=== PATIENT | female | born 1965 | race American Indian/Alaskan Native ===

== ENCOUNTER → 2019-09-03 | Outpatient (CLI) | payer BC ==
[~2019-09-03] MED LIST: COREG6.25 MG PO; ESIDRIX25 MG PO; FLEXERIL 1010 MG/TAB PO; FLONASE NASAL S16 GM NS; GABAPENTIN100 MG PO; LISINOPRIL40 MG PO; METFORMIN500 MG PO; NEXIUM 40MG40 MG PEG
== END ==
LOC: ZCOL.LAB 15:57
DX: R10.32 Left lower quadrant pain (principal)

== ENCOUNTER → 2019-09-29 | Outpatient (CLI) | payer BC | LOC: COL.RAD 09-24 09:45 | DX: K80.80 Other cholelithiasis without obstruction (principal); K80.20 Calculus of gallbladder without cholecystitis without obstruction ==

== ENCOUNTER 2019-10-16 08:26 | Day surgery (SDC) | payer BC ==
[~2019-10-16] VITALS: Ht 170.2 cm; Wt 91.5 kg
[2019-10-16 09:07] VITALS: BP 189/97; PULSE 105; TEMP 96.9
[2019-10-16] MEDS ORDERED: GLUCOPHAGE1000 MG PO (09:26)
[2019-10-16] MEDS ORDERED: JARDIANCE25 PO (09:27)
[2019-10-16] MEDS ORDERED: LINZESS290CAP PO (09:27)
[2019-10-16] MEDS ORDERED: ZYRTEC 10MG10 MG PO (09:28)
[2019-10-16] MEDS ORDERED: NEXIUM 20MG20 MG PO (09:28)
[2019-10-16] MEDS ORDERED: BENTYL 20MG20 MG/TAB PO (09:29)
[2019-10-16] MEDS ORDERED: REGLAN 10MG10 MG/TAB PO ×2 (09:29→09:30)
[2019-10-16] MEDS ORDERED: NEURONTIN300 MG/CAP PO (09:30)
[2019-10-16] MEDS ORDERED: PRINIVIL20 MG PO (09:31)
[2019-10-16] MEDS ORDERED: ATARAX 25MG25 MG/TAB PO (09:32)
[2019-10-16] MEDS ORDERED: FLEXERIL 1010 MG/TAB PO (09:33)
[2019-10-16 10:30] VITALS: BP 141/80; PULSE 99; TEMP 98.1
--- NOTE | 2019-10-16 10:30 | NUR ---
Pt to GI bay 4 via cart from ENDO. Pt awake and alert. Pt denies pain or nausea. Pt ambulates to recliner with stand by assistance x2. Warm blanket provided. Juice, muffin, applesauce, and water provided per pt request. Will continue to monitor. Call light within reach.
[2019-10-16 10:45] VITALS: BP 143/80; PULSE 98
--- NOTE | 2019-10-16 10:45 | NUR ---
Pt denies pain or nausea. Tolerating food and fluids without difficulties. Denies needs. Call light within reach.
[2019-10-16 11:00] VITALS: BP 159/76; PULSE 98
--- NOTE | 2019-10-16 11:00 | NUR ---
Discharge intstructions reviewed. Pt voices understanding. Iv site discontinued with all parts intact. Pt up to dress. Call light within reach.
--- NOTE | 2019-10-16 11:22 | NUR ---
Pt escorted to private car via wheel chair. Pt accompanied home by her .
== END 2019-10-16 11:23 | disposition home or self-care (01) ==
LOC: SDCO 08:26
DX: K21.9 Gastro-esophageal reflux disease without esophagitis (principal); K57.30 Diverticulosis of large intestine without perforation or abscess without bleeding; K59.00 Constipation, unspecified; R14.0 Abdominal distension (gaseous); Z79.899 Other long term (current) drug therapy; E11.9 Type 2 diabetes mellitus without complications; Z79.84 Long term (current) use of oral hypoglycemic drugs; Z88.0 Allergy status to penicillin; Z88.8 Allergy status to other drugs, medicaments and biological substances; I10 Essential (primary) hypertension
CPT/HCPCS: J2250; J3010; J7030

== ENCOUNTER → 2019-10-23 | Outpatient (CLI) | payer BC ==
[~2019-10-23] MED LIST changes: +ATARAX 25MG25 MG/TAB PO; +BENTYL 20MG20 MG/TAB PO; +GLUCOPHAGE1000 MG PO; +JARDIANCE25 PO; +LINZESS290CAP PO; +NEURONTIN300 MG/CAP PO; +NEXIUM 20MG20 MG PO; +PRINIVIL20 MG PO; +REGLAN 10MG10 MG/TAB PO; +ZYRTEC 10MG10 MG PO
== END ==
LOC: COL.RAD 09:56
DX: K80.10 Calculus of gallbladder with chronic cholecystitis without obstruction (principal); K82.8 Other specified diseases of gallbladder
CPT/HCPCS: A9537; J2805

== ENCOUNTER → 2019-11-10 | Outpatient (CLI) | payer BC | LOC: COL.RAD 11-05 14:00 | DX: M47.816 Spondylosis without myelopathy or radiculopathy, lumbar region (principal) ==

== ENCOUNTER 2019-11-18 10:29 | Day surgery (SDC) | payer BC ==
[2019-11-18] VITALS (7 sets, daily range): BP systolic 109–137; BP diastolic 47–77; PULSE 92–107; TEMP 97–98.1
[~2019-11-18] VITALS: Ht 170.2 cm; Wt 87.7 kg
[2019-11-18] MEDS ORDERED: NORCO 325 MG-51 TAB PO (13:54)
--- NOTE | 2019-11-18 14:30 | NUR ---
PATIENT TRANSPORTED TO BAY 3 ACCOMPANIED BY PACU STAFF. MONITORS APPLIED. PATIENT ON ROOM AIR. VSS. PATIENT ALERT AND TALKING WITH STAFF. PATIENT DENIES NAUSEA AND DISCOMFORT.
--- NOTE | 2019-11-18 14:45 | NUR ---
PATIENT WATCHING TV. GIVEN MUFFIN AND WATER. PATIENT EATING AND DRINKING WITHOUT PROBLEMS. VSS ON ROOM AIR.
--- NOTE | 2019-11-18 15:00 | NUR ---
VSS ON ROOM AIR. PATIENT STATES THAT MUFFIN AND WATER WERE GOOD. PATIENT DENIES DISCOMFORT AND NAUSEA. SHE CONTINUES WATCHING TV. PATIENT REQUESTS MORE WATER AND MUFFIN.
--- NOTE | 2019-11-18 15:30 | NUR ---
VSS. DISCHARGE INSTRUCTIONS GIVEN VERBAL AND WRITTEN. DISCHARGE PACKET GIVEN TO PATIENT. QUESTIONS ANSWERED AND PATIENT VOICED UNDERSTANDING. 1540 IV DC'D WITH CATHETER TIP INTACT. PRESSURE APPLIED AND BANDAGE APPLIED. PATIENT CHANGED INTO PERSONAL CLOTHING WITH ASSIST. 1545 PATIENT DISCHARGED PER PERSONAL WHEEL CHAIR WITH ASSISTANCE OF STAFF.
--- NOTE | 2019-11-18 15:47 | NUR ---
VSS. PATIENT ASSISTED TO BATHROOM PER PERSONAL WHEEL CHAIR. PATIENT TRANSFERS SELF TO TOILET. PATIENT VOIDS WITHOUT PROBLEMS.
== END 2019-11-18 15:45 | disposition home or self-care (01) ==
LOC: SDCO 10:29
DX: K80.10 Calculus of gallbladder with chronic cholecystitis without obstruction (principal); I10 Essential (primary) hypertension; E11.42 Type 2 diabetes mellitus with diabetic polyneuropathy; K21.9 Gastro-esophageal reflux disease without esophagitis; G89.29 Other chronic pain; M54.5 Low back pain; F41.9 Anxiety disorder, unspecified; G43.909 Migraine, unspecified, not intractable, without status migrainosus; Z88.0 Allergy status to penicillin; Z79.899 Other long term (current) drug therapy; Z90.710 Acquired absence of both cervix and uterus
CPT/HCPCS: J0690; J2370; J2405; J2704; J3010; J7030

== ENCOUNTER 2024-02-28 21:13 | Inpatient (IN) | payer BC ==
[~2024-02-28] VITALS: Ht 172.7 cm; Wt 103.5 kg
[~2024-02-28 21:13] MED LIST changes: +NORCO 325 MG-51 TAB PO
[2024-02-28] MEDS ORDERED: LEVETIRACETAM 100 MG/ML IV ONE (21:17)
[2024-02-28] MEDS ORDERED: LORazepam 2 MG/ML 1 ML VIAL IV ONE ×2 (21:21→21:30)
[2024-02-28] MEDS ORDERED: Etomidate 20 MG/10 ML VIAL IV ONE ×2 (21:25→21:30)
[2024-02-28] MEDS ORDERED: Succinylcholine PF 200 MG/10 ML SYRINGE IV ONE (21:26)
[2024-02-28] MEDS ORDERED: levETIRAcetam 500 MG in Syringe 1 EACH IV ONE (21:30)
[2024-02-28 21:41] LABS: BASO # 0.1 K/mm3 (0.0-0.2); BASO % 0.3 % (0.0-2.0); EOS # 0.6 K/mm3 (0.0-0.7); EOS % 3.2 % (0.0-4.0); GRAN # 15.2 K/mm3 (1.4-6.5); GRAN % 79.7 % (42.2-75.2); LYMPH # 2.5 K/mm3 (1.2-3.4); LYMPH % 13.1 % (20.0-51.0); MEAN CELL VOLUME 89 fl (80.0-100.0); MEAN CORPUSCULAR HGB CONC 33 g/dl (33.0-37.0); MEAN PLATELET VOLUME 8.4 fl (7.4-10.4); MONO # 0.5 K/mm3 (0.1-0.6); MONO % 2.5 % (1.7-9.3); PLATELET COUNT 251 K/mm3 (130-400); RED BLOOD COUNT 2.84 M/mm3 (4.10-5.30); REDCELL DISTRIBUTION WIDTH-CV 14.6 % (11.5-14.5)
[2024-02-28 21:45] LABS: HEMATOCRIT 25.2 % (37.0-47.0); HEMOGLOBIN 8.3 g/dl (12.5-16.0); MEAN CORPUSCULAR HEMOGLOBIN 29 pg (27-31)
[2024-02-28] MEDS ORDERED: NS 500 ML IV ONE (21:45)
[2024-02-28 22:00] LABS: ALBUMIN 2.6 g/dL (3.5-5.0); BILIRUBIN,TOTAL 0.4 mg/dL (0.2-1.2); CREATININE, serum 1.52 mg/dL (0.57-1.11); POTASSIUM 3.9 mEq/L (3.5-4.5); TOTAL PROTEIN 6.7 g/dl (6.2-8.1)
[2024-02-28 22:02] LABS: TROPONIN-I 0.021 ng/mL (0.00-0.033)
[2024-02-28] MEDS ORDERED: Iohexol 300 - 100 ML VIAL IV ONE (22:19)
[2024-02-28 22:48] LABS: COLLECTION METHOD CLEAN CATCH
[2024-02-28 22:50] LABS: ARTERIAL BLOOD GAS BASE EXCESS -8.2 (-2-2); ARTERIAL BLOOD GAS HCO3 17.8 meq/L (22-26); ARTERIAL BLOOD GAS PCO2 38.5 mmHg (35-45); ARTERIAL BLOOD GAS PO2 54.8 mmHg (80-100); ARTERIAL BLOOD GAS pH 7.28 (7.35-7.45)
[2024-02-28 23:04] LABS: PH 6.5 (5.0-8.5); URINE APPEARANCE TURBID (CLEAR/HAZY); URINE BLOOD 3+ (NEGATIVE); URINE COLOR YELLOW (YELLOW); URINE GLUCOSE NEGATIVE (NEGATIVE); URINE KETONE TRACE (NEGATIVE); URINE NITRATE NEGATIVE (NEGATIVE); URINE PROTEIN(semi-quant) 4+ (NEGATIVE); URINE UROBILINOGEN 0.2 E.U/dL (0.2-1.0)
[2024-02-28 23:19] LABS: AMORPHOUS CRYSTAL PRESENT (NOT PRESENT); MUCOUS PRESENT (NOT PRESENT); URINE BACTERIA MANY /hpf (NONE SEEN); URINE RBC >50 /hpf (0-2); URINE WBC >50 /hpf (0-2)
[2024-02-28 23:31] VITALS: BP 190/82; PULSE 74
[2024-02-28 23:35] VITALS: BP 190/82; PULSE 74
[2024-02-28 23:40] VITALS: BP 128/58; PULSE 75
[2024-02-29] VITALS (884 sets, daily range): BP systolic 128–173; BP diastolic 43–89; PULSE 56–73; TEMP 97.2–98.3; O2SAT 95–100
[2024-02-29] MEDS ORDERED: AZTREONAM IV ONE (00:30)
[2024-02-29] MEDS ORDERED: NS 250 ML IV ONE (00:30)
[2024-02-29] MEDS ORDERED: WATER FOR INJECTION STERILE IV ONE (00:30)
--- NOTE | 2024-02-29 01:09 | NUR ---
THIS RT CALLED TO ER FOR ARRIVAL OF PATIENT WHO WAS FOUND UNCONCIOUS. PATIENT ON ARRIVAL ON RA. PATIENT SNORING AND HAVING SEIZURES AT THIS TIME. JAW THRUST WAS INTIATED AND O2 THEN PLACED DUE TO DESAT FROM SEIZURE AND NO MEANINGFUL RESPIRATORY DRIVE. DOC SPOKE WITH FAMILY AND FAMILY WANTS TO PROCEED WITH LIFE SAVING MEASURES, INTUBATION WAS DONE AT 2126 WITH 8.0 24 @ TH. INITIAL VENT SETTINGS 400, R20, 100%, PEEP5. FI02 DROPPED TO 60%. FIO2 REMAINS ON 60% AFTER ABG. ABG SEEMS TO BE MIXED BLOOD GAS. PATIENT REMAINS ON VENTILATOR AND COMFORTABLE WITH SET PARAMETERS AT THIS TIME.
[2024-02-29] MEDS ORDERED: fentaNYL 100 ML IV SCH (02:00)
[2024-02-29] MEDS ORDERED: Naloxone 0.4 MG/ML VIAL IV PRN (02:00)
[2024-02-29] MEDS ORDERED: Albuterol/Ipratropium 3 MG-0.5 MG/3 ML Neb Soln IH SCH (02:00)
[2024-02-29] MEDS ORDERED: Albuterol/Ipratropium 3 MG-0.5 MG/3 ML Neb Soln IH PRN (02:00)
[2024-02-29 03:01] LABS: ARTERIAL BLD GAS O2 SATURATION 99.6 % (92-100); ARTERIAL BLD GAS TCO2 CT 17.9; ARTERIAL BLOOD GAS BASE EXCESS -7.8 (-2-2); ARTERIAL BLOOD GAS HCO3 16.9 meq/L (22-26); ARTERIAL BLOOD GAS pH 7.36 (7.35-7.45)
[2024-02-29 03:02] LABS: ARTERIAL BLOOD GAS PO2 438.6 mmHg (80-100)
--- NOTE | 2024-02-29 03:25 | NUR ---
RECEIVED REPORT FROM HAN NICHOLAS RN. PATIENT CURRENTLY INTUBATED AND SEDATED, HINKLE CATHETER IN PLACE. IO IN LEFT TIBIA. PERIPHERAL IN RIGHT AC AND RIGHT HAND. ET TUBE AT 24 AT THE LIPS AND OG AT 59 AT THE LIPS. PATIENT ARRIVED TO UNIT AROUND 0235, ALL BELONINGS WITH WHO IS ALSO WITH PATIENT AT TIME OF TRANSFER. NO ACUTE EVENTS.
[2024-02-29] MEDS ORDERED: levETIRAcetam 1,000 MG in Syringe 1 EACH IV ONE (03:30)
[2024-02-29] MEDS ORDERED: Vancomycin 1.5 GM,Special Dose/Pharmacy Prepared 1.5 GM in NS 250 ML IV SCH (03:45)
[2024-02-29] MEDS ORDERED: LR 1,000 ML IV SCH (03:45)
[2024-02-29] MEDS ORDERED: Doxycycline Hyclate 100 MG in NS 150 ML IV SCH (04:00)
[2024-02-29] MEDS ORDERED: LORazepam 2 MG/ML 1 ML VIAL IV PRN (04:00)
[2024-02-29] MEDS ORDERED: ISORDIL 10MG10 MG PO (04:31)
[2024-02-29] MEDS ORDERED: ASPIRIN 81M81 MG/TA2 PO (04:31)
[2024-02-29] MEDS ORDERED: APRESOLINE 25MG25 MG PO (04:31)
[2024-02-29] MEDS ORDERED: FOLIC ACID 11 MG/TA1 PO (04:32)
[2024-02-29] MEDS ORDERED: LEXAPRO 10MG10 MG PO (04:32)
[2024-02-29] MEDS ORDERED: CYMBALTA 30MG30 MG PO (04:32)
[2024-02-29] MEDS ORDERED: KEPPRA 500MG500 MG PO (04:32)
[2024-02-29] MEDS ORDERED: LIPITOR 40MG TA40 MG PO (04:32)
[2024-02-29] MEDS ORDERED: DESYREL 50MG50 MG PO (04:32)
[2024-02-29] MEDS ORDERED: NORVASC 10MG10 MG PO (04:32)
[2024-02-29] MEDS ORDERED: DITROPAN 5MG TAB5 MG PO (04:32)
[2024-02-29] MEDS ORDERED: COREG 3.123.125 MG/T PO (04:32)
[2024-02-29] MEDS ORDERED: PLAVIX 75MG TAB75 MG PO (04:32)
[2024-02-29] MEDS ORDERED: PROTONIX 40MG T40 MG PO (04:33)
[2024-02-29] MEDS ORDERED: Atorvastatin 40 MG TAB PO SCH (04:34)
[2024-02-29] MEDS ORDERED: Meropenem 500 MG in Water For Injection,Sterile 10 ML IV SCH (05:00)
--- NOTE | 2024-02-29 05:37 | NUR ---
Vancomycin Initial Dosing Pharmacy Note Ordering provider: Ji Ramirez MD Indication/duration: Complicated UTI x 7 days Relevant comorbidities: HTN, HF, indwelling montes catheter LABS: WBC = 19.1, SCr = 1.52 Recommendation: Will draw troughs and follow levels Loading dose: 2 grams Maintenance dose: 1.25 grams every 24 hours Trough goal: 10-15 ug/mL
--- NOTE | 2024-02-29 06:15 | NUR ---
SEDATION VACATION NOT COMPLETED AT THIS TIME.
[2024-02-29 07:12] LABS: BASO % 0.2 % (0.0-2.0); EOS # 0.2 K/mm3 (0.0-0.7); EOS % 1.3 % (0.0-4.0); GRAN # 13.8 K/mm3 (1.4-6.5); GRAN % 83.1 % (42.2-75.2); LYMPH # 1.8 K/mm3 (1.2-3.4); LYMPH % 10.7 % (20.0-51.0); MEAN CELL VOLUME 87 fl (80.0-100.0); MEAN CORPUSCULAR HGB CONC 33 g/dl (33.0-37.0); MEAN PLATELET VOLUME 8.7 fl (7.4-10.4); MONO # 0.6 K/mm3 (0.1-0.6); MONO % 3.9 % (1.7-9.3); PLATELET COUNT 192 K/mm3 (130-400); RED BLOOD COUNT 2.25 M/mm3 (4.10-5.30); REDCELL DISTRIBUTION WIDTH-CV 14.6 % (11.5-14.5)
[2024-02-29 07:18] LABS: HEMATOCRIT 19.5 % (37.0-47.0); HEMOGLOBIN 6.5 g/dl (12.5-16.0); MEAN CORPUSCULAR HEMOGLOBIN 29 pg (27-31)
[2024-02-29 07:30] LABS: CALCIUM 10.2 mg/dL (8.4-10.2); CREATININE, serum 1.45 mg/dL (0.57-1.11); POTASSIUM 3.4 mEq/L (3.5-4.5)
[2024-02-29] MEDS ORDERED: Carvedilol 3.125 MG TAB PO SCH (08:00)
[2024-02-29] MEDS ORDERED: levETIRAcetam 500 MG in Syringe 1 EACH IV SCH (09:00)
[2024-02-29] MEDS ORDERED: Clopidogrel 75 MG TAB PO SCH (09:00)
--- NOTE | 2024-02-29 10:18 | NUR ---
MANISH met with patient's Jackson in room to complete inital assessment for discharge planning. Patient intubated and sedated. Jackson ([phone]) confirmed that patient lives at home with him and their 27 year old autistic son in [place]. They have two daughters that live in [facility] and assist on weekends with patient care. Patient does not have a PCP currently but has been established with Dr. Khadijah Connors in 2019. She uses [facility] in [place]. DME at home includes: walker, wheelchair, hospital bed, MIMA mattress, yahaira lift, BSC, oxygen at 2 LPM, portable concentrator. 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 states that patient has returned to [place] from [place] in December 2023. She was seen in several medical facilities and rehab facilities in [facility]. states that patient has history of depression. He shared that patient has not been seen by medical provider since returning to [place] due to her stating "she's afraid of being left alone and is afraid of public transportation for medical appointments. Patient is reported to have been out of medications since returning from [place]. Discharge planning is undetermined at this time pending medical course. Discussed 's ability to care for patient at home. He states he thinks he can provide her care but time will determine patient care needs. Discharge plan: TBD
[2024-02-29] MEDS ORDERED: ROXICODONE 55 MG/TAB PO (10:45)
--- NOTE | 2024-02-29 11:26 | NUR ---
Data: Patient's Victor Manuel accepted Spiritual Care visit offered during Import Manager rounds. Patient is intubated. Assessment: is exhausted from a long night in the ER/ICU. Accepting of prayer. Concerned for the wellbeing of son who is waiting at home. Plan of Care: Import Manager provided supportive listening and prayer. Chaplains will remain available as needed/requested while Patient is admitted to this hospital.
[2024-02-29] MEDS ORDERED: Potassium Bicarbonate/Citrate 20 MEQ Effervescent TAB PO SCH (11:30)
--- NOTE | 2024-02-29 15:24 | NUR ---
SW entered APS report for neglect/self neglect. Report #[id number] submitted
[2024-02-29 16:35] LABS: HEMOGLOBIN 6.9 g/dl (12.5-16.0)
--- NOTE | 2024-02-29 19:24 | NUR ---
PATIENT CURRENTLY INTUBATED AND SEDATED. PATIENT REACTS TO PAIN BUT DOES NOT FOLLOW COMMANDS. ET TUBE AT 24 AT THE LIPS. OG TUBE AT 59 AT THE LIPS. HINKLE CATHETER IN PLACE, DRAINS WITH SOME LEAKAGE. CENTRAL LINE TO RIGHT SUBCLAVIAN. PERIPHERAL IV'S TO RIHGT HAND AND RIGHT FOREARM. NO ACUTE EVENTS.
[2024-03-01] VITALS (1080 sets, daily range): BP systolic 106–182; BP diastolic 52–65; PULSE 48–71; TEMP 97.7–98.6; O2SAT 93–100
--- NOTE | 2024-03-01 | NUR ---
PT WAS PLACED BACK ON SEDATION AND AC MODE ON VENT AT 2100 TO REST. NO SIGN OF DISTRESS AT THIS TIME.
--- NOTE | 2024-03-01 02:01 | NUR ---
THIS RN CHANGED PATIENTS LEFT SUBCLAVIAN CENTRAL LINE DRESSING.
[2024-03-01 04:58] LABS: BASO % 0.3 % (0.0-2.0); EOS # 0.4 K/mm3 (0.0-0.7); EOS % 2.9 % (0.0-4.0); GRAN # 11.9 K/mm3 (1.4-6.5); GRAN % 83.8 % (42.2-75.2); LYMPH # 1.2 K/mm3 (1.2-3.4); LYMPH % 8.1 % (20.0-51.0); MEAN CELL VOLUME 84 fl (80.0-100.0); MEAN CORPUSCULAR HGB CONC 36 g/dl (33.0-37.0); MEAN PLATELET VOLUME 8.4 fl (7.4-10.4); MONO # 0.6 K/mm3 (0.1-0.6); MONO % 4.3 % (1.7-9.3); PLATELET COUNT 179 K/mm3 (130-400); RED BLOOD COUNT 2.49 M/mm3 (4.10-5.30); REDCELL DISTRIBUTION WIDTH-CV 15.2 % (11.5-14.5)
[2024-03-01 05:01] LABS: HEMATOCRIT 20.8 % (37.0-47.0); HEMOGLOBIN 7.4 g/dl (12.5-16.0); MEAN CORPUSCULAR HEMOGLOBIN 30 pg (27-31)
[2024-03-01 05:18] LABS: CREATININE, serum 1.49 mg/dL (0.57-1.11); MAGNESIUM 1.6 mg/dL (1.6-2.6); PHOSPHOROUS 2.9 mg/dL (2.3-4.7); POTASSIUM 3.5 mEq/L (3.5-4.5)
--- NOTE | 2024-03-01 05:56 | NUR ---
SEDATION VACATION NOT COMPLETED AT THIS TIME.
[2024-03-01 06:00] LABS: ARTERIAL BLD GAS O2 SATURATION 97.4 % (92-100); ARTERIAL BLD GAS TCO2 CT 19.3; ARTERIAL BLOOD GAS BASE EXCESS -5.4 (-2-2); ARTERIAL BLOOD GAS HCO3 18.4 meq/L (22-26); ARTERIAL BLOOD GAS PCO2 29.5 mmHg (35-45); ARTERIAL BLOOD GAS PO2 94.3 mmHg (80-100); ARTERIAL BLOOD GAS pH 7.41 (7.35-7.45)
[2024-03-01] MEDS ORDERED: Vancomycin 1.25 GM,Special Dose/Pharmacy Prepared 1.25 GM in NS 250 ML IV SCH (06:00)
[2024-03-01] MEDS ORDERED: Potassium Chloride 100 ML IV SCH (06:00)
--- NOTE | 2024-03-01 08:10 | NUR ---
Patient responds easily to painful stimuli, but does not follow commands. Assisted with repositioning. VS stable on current vent settings.
[2024-03-01] MEDS ORDERED: Folic Acid 1 MG TAB PO SCH (10:01)
[2024-03-01] MEDS ORDERED: DULoxetine 30 MG CAP PO SCH (10:01)
[2024-03-01] MEDS ORDERED: Escitalopram 10 MG TAB PO SCH (10:02)
[2024-03-01] MEDS ORDERED: Pantoprazole 40 MG in NS 10 ML IV SCH (10:08)
[2024-03-01] MEDS ORDERED: Sodium Bicarbonate 650 MG TAB PO SCH (10:19)
[2024-03-01] MEDS ORDERED: Furosemide 40 MG TAB PO ONE (11:00)
[2024-03-01] MEDS ORDERED: hydrALAZINE 20 MG/ML 1 ML VIAL IV PRN (13:45)
[2024-03-01] MEDS ORDERED: Isosorbide Dinitrate 10 MG TAB PO SCH (14:00)
--- NOTE | 2024-03-01 14:20 | NUR ---
Idalia on CPAP trial; tolerating well at this time.
[2024-03-01] MEDS ORDERED: Furosemide 40 MG TAB PO SCH (16:00)
--- NOTE | 2024-03-01 16:00 | NUR ---
Patient repositioned and bed bath given. Patient has generalized excoriation to the entire left back side of flank and thigh which extends into inner thighs. Multiple open areas are noted to her coccyx and left gluteal thigh region. 0.5 X0.5 deep wound noted to gluteal fold and below this area is a stage is a shallow 2 X 1.5 cm area. Near the coccyx is an open 1.5X 1.5 ulceration. Below this is a larger ulcer with a red bleeding wound bed which measures 3.0X2.0. states that the excoriation and wounds have been present since prior to this hospital stay and even appear to be improving.
--- NOTE | 2024-03-01 20:00 | NUR ---
PT HAS AN OSTOMY. STOMA IS PINK AND MOIST. PT HAS MULTIPLE WOUNDS. SACRAL/COCCYX 2.5 X0.5 CM PIN WOUND BED. DISTAL TO COCCYX 3X2 CM PINK WOUND BED. LEFT UPPER GLUTEAL 1.5X1.5 CM. LEFT GLUTEAL FOLD 0.5X0.5. DISTAL TO GLUTEAL FOLD 2X1.5 CM. LEFT HEAL IS DRY, FLAKY WITH A CRACK. LEFT FLANK/BACK AND LEFT INNER/POSTIERIOR THIGH EXCORIATED. UNDER BILATERAL BREAST IS EXCORIATED.
[2024-03-01] MEDS ORDERED: Oxybutynin 5 MG TAB PO SCH (21:00)
[2024-03-01] MEDS ORDERED: levETIRAcetam 500 MG TAB PO SCH (21:00)
--- NOTE | 2024-03-01 22:22 | NUR ---
AT THE BEDSIDE. PT IS ON SBT. ALERT, BUT DOESN'T FOLLOW COMMANDS. RESPIRATIONS EVEN AND UNLABORED. NO SIGN OF DISTRESS AT THIS TIME. CONTINUE PLAN OF CARE. PLAN FOR MRI, BILATERAL VENOUS DUPLEX BLE AND ECHO 03/02. STATES, PT "WIGGED OUT" THE LAST TIME SHE HAD AN MRI. IT MAY BE BETTER TO PERFORM MRI ON SEDATION AND THE PLACE ON SBT.
[2024-03-02] VITALS (941 sets, daily range): BP systolic 146–187; BP diastolic 51–91; PULSE 68–73; TEMP 97–98.6; O2SAT 95–100
[2024-03-02 06:04] LABS: BASO % 0.2 % (0.0-2.0); EOS # 0.5 K/mm3 (0.0-0.7); GRAN % 79.6 % (42.2-75.2); LYMPH # 1.4 K/mm3 (1.2-3.4); LYMPH % 11.1 % (20.0-51.0); MEAN CELL VOLUME 88 fl (80.0-100.0); MEAN CORPUSCULAR HGB CONC 33 g/dl (33.0-37.0); MEAN PLATELET VOLUME 8.5 fl (7.4-10.4); MONO # 0.6 K/mm3 (0.1-0.6); MONO % 4.5 % (1.7-9.3); PLATELET COUNT 179 K/mm3 (130-400); REDCELL DISTRIBUTION WIDTH-CV 15.8 % (11.5-14.5); RETIC # 0.07 M/mm3 (0.02-0.16); RETIC % 2.7 % (0.5-3.52)
[2024-03-02 06:06] LABS: HEMATOCRIT 22.1 % (37.0-47.0); HEMOGLOBIN 7.3 g/dl (12.5-16.0); MEAN CORPUSCULAR HEMOGLOBIN 29 pg (27-31)
[2024-03-02 06:19] LABS: CREATININE, serum 1.7 mg/dL (0.57-1.11); MAGNESIUM 1.7 mg/dL (1.6-2.6); PHOSPHOROUS 3.2 mg/dL (2.3-4.7); POTASSIUM 3.8 mEq/L (3.5-4.5)
--- NOTE | 2024-03-02 07:59 | NUR ---
PT IS SCHEDULED FOR AN MRI HEAD THIS MORNING. SEDTION VACATION TO BE PERFORMED LATER TODAY.
--- NOTE | 2024-03-02 08:24 | NUR ---
REMAINS STABLE ON ROUNDS. STILL NOT FOLLOWING COMMANDS, BUT IS ALERT. CONTINUE WITH PLAN OF CARE.
[2024-03-02] MEDS ORDERED: Iron Sucrose 400 MG in NS 250 ML Over 150 minutes IV ONE (10:15)
[2024-03-02] MEDS ORDERED: Gadoterate 20 ML VIAL IV ONE (11:33)
--- NOTE | 2024-03-02 12:53 | NUR ---
TRANSPORTED PT TO MRI @ 1112 RETURNED 1205. PT BAGGED FOR TRANSPORT NO COMPLICATIONS TOLERATED WELL. PLACED BACK ON VENT @ 1205 PER CHARTED SETTINGS.
--- NOTE | 2024-03-02 14:30 | NUR ---
THIS NURSE CALLED DR. PENN AFTER PATIENT TOLERATING CPAP SETTING ON VENTILATOR. DR. PENN ADVISED TO GO AHEAD WITH EXTUBATION AND RECOMMENDED TO PLACE THE PATIENT ON NASAL CANNULA PATIENT HAS BEEN INTOLERANT TO OXYGEN MASKS PRIOR TO THIS STAY. THIS NURSE THEN CALLED ILIA, RESPIRATORY THERAPIST, TO COMPLETE THE EXTUBATION.
--- NOTE | 2024-03-02 14:41 | NUR ---
PATIENT IS HAS BEEN EXTUBATED AT 1440. PATIENT TOLERATED EXTUBATION WELL, AND IS COUGHING UP SECRETIONS. PATIENT WAS PLACED ON A NASAL CANNULA AT 3 L. OG TUBE AND RESTRIANTS DISCONTINUED AT THIS TIME.
--- NOTE | 2024-03-02 14:51 | NUR ---
toll test desk worker reviewed PT and OT recommendations. Both recommended SNF. SW met with patient and her after she was extubated. SW provided the Medicare.gov list of SNF and IPR options closest to IPR as patient's insurance likely will not cover SNF but would cover IPR if approved. Patient's and patient will review. SW will follow up.
--- NOTE | 2024-03-02 15:27 | NUR ---
PT ON PRESURE SUPPORT TRIAL SINCE 1245 RN CALLED GOT EXTUBATION ORDER. EXTUBATED AT 1440 TO 3L/NC TOLERATED WELL. SPO2 100%.
--- NOTE | 2024-03-02 18:09 | NUR ---
PATIENT CHANGED INTO A FRESH GOWN PRIOR TO SHIFT CHANGE. PATIENT ALSO PROVIDED WITH CLEAN SHEETS AND BLANKETS. IS AT BEDSIDE. PATIENT OPENS EYES TO ANY VERBAL OR SENSATIONAL STIMULATION. PATIENT COUGHING A VERY RASPY AND DRY COUGH. PATIENT GIVEN LITTLE SIPS OF WATER AND SWALLOWED ACCORDINGLY.
--- NOTE | 2024-03-02 19:42 | NUR ---
Received report from CARLOS Gerardo. Pt is resting in bed with bed in low position and call light within reach. Pt's is at bed side at this time. Pt's vitals are stable and pt does not look in distress and has 2L O2 via NC. There is no drips of IVFs running at this time. Poon in place with no kinks in tubing. Will contiue with pt care.
[2024-03-03] VITALS (1006 sets, daily range): BP systolic 150–170; BP diastolic 55–68; PULSE 71–78; TEMP 97.3–98.4; O2SAT 89–100
[2024-03-03 05:36] LABS: BASO # 0.1 K/mm3 (0.0-0.2); BASO % 0.4 % (0.0-2.0); EOS # 0.7 K/mm3 (0.0-0.7); GRAN # 11.8 K/mm3 (1.4-6.5); GRAN % 84.5 % (42.2-75.2); LYMPH # 0.8 K/mm3 (1.2-3.4); MEAN CELL VOLUME 89 fl (80.0-100.0); MEAN CORPUSCULAR HGB CONC 33 g/dl (33.0-37.0); MEAN PLATELET VOLUME 8.6 fl (7.4-10.4); MONO # 0.5 K/mm3 (0.1-0.6); MONO % 3.7 % (1.7-9.3); PLATELET COUNT 204 K/mm3 (130-400); RED BLOOD COUNT 2.62 M/mm3 (4.10-5.30); REDCELL DISTRIBUTION WIDTH-CV 15.5 % (11.5-14.5)
[2024-03-03 05:51] LABS: CALCIUM 9.7 mg/dL (8.4-10.2); CREATININE, serum 1.77 mg/dL (0.57-1.11); HEMATOCRIT 23.4 % (37.0-47.0); HEMOGLOBIN 7.6 g/dl (12.5-16.0); MAGNESIUM 1.7 mg/dL (1.6-2.6); MEAN CORPUSCULAR HEMOGLOBIN 29 pg (27-31); PHOSPHOROUS 4.1 mg/dL (2.3-4.7); POTASSIUM 3.9 mEq/L (3.5-4.5)
--- NOTE | 2024-03-03 07:00 | NUR ---
RECIEVED REPORT FROM CARLOS BERRIOS. PATIENT IS RESTING PEACEFULLY IN HER BED. VITAL SIGNS ARE STABLE AND PATIENT IS RECIEVING 02 AT 1 L VIA NASAL CANNULA. PATIENT HAS NO DRIPS RUNNING AT THIS TIME. HINKLE CATHETER IS IN PLACE, DRAINING ACCORDINGLY, WITH NO KINKS OR LOOPS NOTED. BED IS IN LOW POSITION WITH CALL LIGHT WITHIN PATIENT'S REACH.
--- NOTE | 2024-03-03 07:37 | NUR ---
Pt had an uneventful night. Pt's vitals have been stable throughout the night. Pt needed hydralazine once throughout the shift. Poon in place with no kinks in tubing. No drips or IVF's running at this time. Pt lying in bed with call light within reach. Gave report to day shift nurse.
--- NOTE | 2024-03-03 08:58 | NUR ---
RECIEVED REPORT FROM CARLOS BERRIOS. PATIENT IS RESTING PEACEFULLY IN HER BED. VITAL SIGNS ARE STABLE AND PATIENT IS RECIEVING O2 AT 1 L VIA NASAL CANNULA. PATIENT HAS NO DRIPS RUNNING AT THIS TIME. HINKLE CATHETER IN PLACE, DRAINING ACCORDINGLY, WITH NO KINKS OR LOOPS. BED IN LOW POSITION AND CALL LIGHT WITHIN PATIENT'S REACH.
--- NOTE | 2024-03-03 09:00 | NUR ---
ARRIVED AT BEDSIDE. PATIENT AND HIM WATCHING TV.
[2024-03-03] MEDS ORDERED: NS 1,000 ML IV SCH (10:45)
[2024-03-03] MEDS ORDERED: levETIRAcetam 500 MG in Syringe 1 EACH IV SCH (10:45)
--- NOTE | 2024-03-03 11:13 | NUR ---
PATIENT EVALUATED BY SPEECH FOR HER INABILITY TO SWALLOW. SPEECH GAVE RECOMMENDATION OF MAINTAINING NPO STATUS AND CONTINUING TO WORK WITH THIS PATIENT TO REGAIN STRENGTH IN HER SWALLOW BEFORE SWITCHING DIETS. PATIENT AND SPOUSE EDUCATED. SPOUSE HAS BEEN HELPING TO SUCTION THE PATIENT'S THICK, YELLOW, SECRETIONS NOTED AFTER COUGHING. PATIENT IS NOW RESTING IN BED PEACEFULLY, BED IN LOW POSITION, AND CALL LIGHT WITHIN THE PATIENT'S REACH.
--- NOTE | 2024-03-03 12:02 | NUR ---
reinforced ironworker attended interdisciplinary clinical rounding with Dr. Shen. Patient would benefit from LTACH. MANISH and Dr. Shen discussed this with patient and her . Patient was unable to answer questions, patient's agreed to LTACH referral. SW discussed Medicaid, patient's stated that she had Medicaid when she was in [place] but has not applied since returning to [place]. Patient has applied for disability. SW explained she would request our financial counselor come meet with him to assist with a Medicaid application because if patient needs LTC after LTACH, it would either be Medicaid or private pay as the payor source. Patient's understands. MANISH secure emailed referral to [facility]. MANISH notified Marelis with financial counselor patient's would benefit from assistance with the Medicaid application. MANISH spoke with Torrey from [facility]. Torrey stated they have beds available, he would call the and discuss with him. MANISH provided the revenue codes for patient. Torrey stated after he speaks with the he will send for authorization to patient's insurance company. MANISH explained patient is alert but not verbally responsive to questions. MANISH will continue to follow up. Discharge plan: [facility]
--- NOTE | 2024-03-03 13:00 | NUR ---
JENNIFER FROM [facility], CONVERSED WITH THIS NURSE FOLLOWING PATIENT STATUS AND PLAN OF CARE COURSE. NUTRITIONAL STATUS WAS QUESTIONED AND DR. MCELROY WAS CALLED FOR ADVICE REGARDING NUTRITIONAL STATUS. DR. MCELROY RECOMMENDED PLACEMENT OF DOBHOFF TUBE TO INITIATE NUTRITIONAL SUPPLEMENTS SINCE THE PATIENT DID NOT PASS HER SWALLOW STUDY PERFORMED BY SPEECH TODAY.
--- NOTE | 2024-03-03 13:50 | NUR ---
DOBHOFF PLACED AT 1350. PATIENT TOLERATED THE PROCEDURE VERY WELL. DOBHOFF MARKED AT 80 CM AT THE R NARE. CHEST XRAY WAS ORDERED AND CONFIRMED PLACEMENT OF DOBHOFF LOCATION. DIETIAN NOTIFIED OF DOBHOFF PLACEMENT AND INITIATION OF TUBE FEEDING. DIETIAN NOTIFIED THIS NURSE THAT THE DIETIAN ON BOARD THIS PATIENT'S CASE IS NOT IN THE BUILDING CURRENTLY, BUT WOULD LOOK OVER HER CASE AND INITIATE FEEDINGS. BED IN LOW POSITION, CALL LIGHT WITHIN REACH.
--- NOTE | 2024-03-03 14:37 | NUR ---
JENNIFER FROM [facility] CONVERSED WITH THIS NURSE FOLLOWING PATIENT STATUS AND PLAN OF CARE COURSE. NUTRITION WAS QUESTIONED AND DR. MCELROY WAS CALLED FOR ADVISE OF NUTRITIONAL STATUS. DR. MCELROY RECOMMENDED PLACEMENT OF DOBHOFF TUBE TO INITIATE NUTRITIONAL SUPPLEMENTS SINCE THE PATIENT DID NOT PASS HER SWALLOW STUDY PERFORMED BY SPEECH TODAY.
--- NOTE | 2024-03-03 18:26 | NUR ---
PATIENT HAD AN UNEVENTFUL DAY. DOOFF HAS TUBE FEEDING INFUSING AT 10 ML/HR. PATIENT TOLERATING IT WELL. PATIENT IS CURRENTLY RESTING WITH SPOUSE AT BEDSIDE. HINKLE IS DRAINING ACCORDINGLY, WITH NO KINKS OR LOOPS NOTED. BED IS IN LOW POSITION, WITH CALL LIGHT WITHIN PATIENT'S REACH.
--- NOTE | 2024-03-03 18:30 | NUR ---
PATIENT'S STOMA IS PINK, AND INTACT. OSTOMY BAG CLEANED. BED IN LOW POSITION AND CALL LIGHT WITHIN REACH.
[2024-03-03] MEDS ORDERED: Furosemide 40 MG/4 ML VIAL IV SCH (19:00)
--- NOTE | 2024-03-03 19:15 | NUR ---
Received report from CARLOS Gerardo. Vitals are stable at this time. Pt has a doubhuff in place with tube feeds running at this time. No IVF's or drips are running at this time. Poon in place with no kinks in tubing. Pt resting in bed with call light within reach. Will continue with pt care.
[2024-03-04] VITALS (1114 sets, daily range): BP systolic 119–150; BP diastolic 40–65; PULSE 70–78; TEMP 97.4–98.5; O2SAT 86–100
[2024-03-04 05:53] LABS: BASO # 0.1 K/mm3 (0.0-0.2); BASO % 0.4 % (0.0-2.0); EOS # 0.8 K/mm3 (0.0-0.7); EOS % 6.4 % (0.0-4.0); GRAN # 9.7 K/mm3 (1.4-6.5); GRAN % 77.5 % (42.2-75.2); LYMPH # 1.3 K/mm3 (1.2-3.4); LYMPH % 10.1 % (20.0-51.0); MEAN CELL VOLUME 90 fl (80.0-100.0); MEAN CORPUSCULAR HGB CONC 33 g/dl (33.0-37.0); MEAN PLATELET VOLUME 8.6 fl (7.4-10.4); MONO # 0.6 K/mm3 (0.1-0.6); MONO % 4.9 % (1.7-9.3); PLATELET COUNT 228 K/mm3 (130-400); REDCELL DISTRIBUTION WIDTH-CV 15.8 % (11.5-14.5)
[2024-03-04 05:55] LABS: HEMATOCRIT 23.3 % (37.0-47.0); HEMOGLOBIN 7.6 g/dl (12.5-16.0); MEAN CORPUSCULAR HEMOGLOBIN 29 pg (27-31)
--- NOTE | 2024-03-04 06:11 | NUR ---
Pt had an uneventful night. Vitals have been stable throughout the night. Tube feeds are running through a doubhuff. Poon is in place with no kinks in tubing and had adequate urine output. Pt repositioned frequently and gown and chucks and one of the coccyx dressing changed during this shift. No IVF's or drips running at this time. Pt is starting to talk more and say more than okay and oww. Pt states that she was cold and back hurt and pt was repositioned and warm blanket was given. Will give report to day shift nurse.
[2024-03-04 06:14] LABS: ALBUMIN 2.1 g/dL (3.5-5.0); BILIRUBIN,TOTAL 0.3 mg/dL (0.2-1.2); CALCIUM 9.9 mg/dL (8.4-10.2); CREATININE, serum 1.89 mg/dL (0.57-1.11); MAGNESIUM 1.7 mg/dL (1.6-2.6); POTASSIUM 3.8 mEq/L (3.5-4.5); TOTAL PROTEIN 5.4 g/dl (6.2-8.1)
[2024-03-04] MEDS ORDERED: Potassium Chloride 100 ML IV ONE (06:30)
--- NOTE | 2024-03-04 09:45 | NUR ---
Initial visit; Patient was able to say to her that she understood that the Director Experimental Medicine was present and she answered Director Experimental Medicine and said that she would like prayer. Director Experimental Medicine introduced herself, offered prayer for healing and talked to Jahaira briefly stating that she is here to help and that she will be back.
--- NOTE | 2024-03-04 13:04 | NUR ---
shell worker attended interdisciplinary clinical rounding with Dr. Shen. Patient is to be seen by neurology to determine if she needs to continue to be monitored by EEG. SW will receive update on this to determine if to proceed with [facility] referral. MANISH was notified by Cindy with wound care that she would have concerns of patient returning home and becoming non-compliant again. MANISH contacted Tyrese with financial counseling to meet with patient's to assist with Medicaid application. Tyrese came down and met with patient's . MANISH was notified by Dr. Sehn and Perla, patient's nurse, that neurology felt [facility] would be an appropriate referral for patient. MANISH notified Torrey from [facility] that they are good to proceed with the authorization from patient's insurance. Torrey expressed they were submitting today.
--- NOTE | 2024-03-04 13:48 | NUR ---
MANISH made APS report: INTAKE ID [id number]
--- NOTE | 2024-03-04 13:59 | NUR ---
MANISH secure emailed updates to Torrey at [facility].
--- NOTE | 2024-03-04 19:12 | NUR ---
UPON INITIAL ASSESSMENT DOBHOFF NG TUBE NOTED TO BE LEAKING NEAR DISTAL HUB. TUBE REPLACED, MEASURED 82CM AT NARE, PLACEMENT CONFIRMED W/ XRAY. PT TOLERATED WELL. WOUND CARE NURSE PRACTITIONER IN TO SEE PT. MEPILEX APPLIED TO BOTH HEELS. L HEEL NOTED TO BE REDDENED, NONBLANCHABLE, BUT INTACT. PRIMO BOOTS IN PLACE TO BLE. MEPILEX DRESSINGS TO COCCYX AND GLUTEAL FOLD WOUNDS CHANGED. DRESSINGS ARE TO BE CHANGED EVERY OTHER DAY OR NEEDED. PT WORKED W/ PHYSICAL THERAPY AND WAS ABLE TO SIT ON EDGE OF BED W/ 2 ASSIST. PT NOTED TO BE MORE ALERT AND RESPONSIVE THROUGHOUT DAY. ORIENTED TO SELF ONLY, FOLLOWS COMMANDS, AND TRIES TO ENGAGE IN CONVERSATION W/ STAFF AND .
--- NOTE | 2024-03-04 19:36 | NUR ---
PATIENT ALERT AND ORIENTED TO SELF, LAYING IN BED, WITH AT BEDSIDE. DOBHOFF IN PLACE AT 82 AT THE NARE WITH TUBE FEEDING IN PROGRESS. HINKLE CATHETER IN PLACE. LEFT SUBCLAVIAN TRIPLE LUMEN IN PLACE WITH NO GTTS RUNNING. NO ACUTE EVENTS.
[2024-03-04] MEDS ORDERED: LEVETIRACETAM IV SCH (21:00)
[2024-03-04] MEDS ORDERED: Acetaminophen 325 MG TAB PO PRN (23:45)
[2024-03-05] VITALS (802 sets, daily range): BP systolic 111–166; BP diastolic 39–67; PULSE 73–91; TEMP 98–98.3; O2SAT 83–100
[2024-03-05 05:27] LABS: BASO % 0.5 % (0.0-2.0); EOS # 0.6 K/mm3 (0.0-0.7); EOS % 7.4 % (0.0-4.0); GRAN # 5.6 K/mm3 (1.4-6.5); GRAN % 67.6 % (42.2-75.2); LYMPH # 1.4 K/mm3 (1.2-3.4); LYMPH % 16.5 % (20.0-51.0); MEAN CELL VOLUME 90 fl (80.0-100.0); MEAN CORPUSCULAR HGB CONC 33 g/dl (33.0-37.0); MONO # 0.6 K/mm3 (0.1-0.6); MONO % 7.6 % (1.7-9.3); PLATELET COUNT 221 K/mm3 (130-400); REDCELL DISTRIBUTION WIDTH-CV 15.8 % (11.5-14.5)
[2024-03-05 05:30] LABS: HEMATOCRIT 22.4 % (37.0-47.0); HEMOGLOBIN 7.4 g/dl (12.5-16.0); MEAN CORPUSCULAR HEMOGLOBIN 30 pg (27-31)
[2024-03-05 05:40] LABS: ALBUMIN 2.3 g/dL (3.5-5.0); ALKALINE PHOSPHATASE 77 U/L (40-150); ANION GAP 8 mmol/L (7-16); AST,SGOT 9 U/L (5-34); BILIRUBIN,TOTAL 0.3 mg/dL (0.2-1.2); BLOOD UREA NITROGEN 44 mg/dL (10-20); CALCIUM 9.7 mg/dL (8.4-10.2); CHLORIDE 117 mEq/L (98-107); CREATININE, serum 1.99 mg/dL (0.57-1.11); GLUCOSE 125 mg/dL (70-99); MAGNESIUM 1.7 mg/dL (1.6-2.6); POTASSIUM 3.6 mEq/L (3.5-4.5); SODIUM 143 mEq/L (136-145); TOTAL PROTEIN 5.6 g/dl (6.2-8.1)
[2024-03-05 05:41] LABS: ALANINE AMINOTRANSFERASE < 6 U/L (0-55)
[2024-03-05] MEDS ORDERED: Potassium Chloride 100 ML IV ONE (06:15)
--- NOTE | 2024-03-05 08:10 | NUR ---
Patient resting in bed with eyes open. Will follow simple commands and can answer a few simple questions, but answers are often slow and slighly delayed. VS stable at this time. Assisted with repositioning. Call light left within reach.
--- NOTE | 2024-03-05 09:21 | NUR ---
quill worker contacted Torrey with [facility] and confirmed they have a bed available and are waiting on [facility] insurance for the authorization. Torrey is hopeful we will hear from [facility] today and be able to transfer the patient. Torrey states he spoke with patient's spouse last evening.
[2024-03-05 10:53] LABS: INR 1.3 (0.8-3.0); PROTHROMBIN TIME 14.4 SECONDS (9.7-12.8)
--- NOTE | 2024-03-05 11:15 | NUR ---
Patient scheduled for a thoracentesis today. This nurse discussed plan of care with patient and . agreeable to the procedure, however patient is stating that she does not want it done. Patient is not fully alert and oriented therefore is able to make medical decisions for her at this time, however he is wanting her input. This nurse stated she would give patient and family some time to discuss the procedure. Hospitalist aware. planetarium technician notified and will let her know if they decided to procede with the procedure today.
[2024-03-05] MEDS ORDERED: Acetaminophen Oral Susp 325 MG/10.15 ML UD PO PRN (14:15)
--- NOTE | 2024-03-05 16:00 | NUR ---
Patient resting in bed denies any needs at this time. Once again discussed the thoracentesis procedure, however patient is still not agreeable to having the procedure done.
--- NOTE | 2024-03-05 16:28 | NUR ---
steam table worker was notified by Torrey from [facility] that they have not heard back from patient's insurance yet. SW will follow up tomorrow.
[2024-03-05] MEDS ORDERED: Meropenem 500 MG in Water For Injection,Sterile 10 ML IV SCH (18:15)
[2024-03-06] VITALS (74 sets, daily range): BP systolic 103–195; BP diastolic 66–83; PULSE 75–84; TEMP 98.1–98.4; O2SAT 95–100
[2024-03-06 05:26] LABS: BASO # 0.1 K/mm3 (0.0-0.2); BASO % 0.6 % (0.0-2.0); EOS # 0.6 K/mm3 (0.0-0.7); EOS % 6.2 % (0.0-4.0); GRAN # 5.9 K/mm3 (1.4-6.5); GRAN % 66.1 % (42.2-75.2); HEMATOCRIT 24.4 % (37.0-47.0); HEMOGLOBIN 8.1 g/dl (12.5-16.0); LYMPH # 1.6 K/mm3 (1.2-3.4); LYMPH % 17.7 % (20.0-51.0); MEAN CELL VOLUME 88 fl (80.0-100.0); MEAN CORPUSCULAR HEMOGLOBIN 29 pg (27-31); MEAN CORPUSCULAR HGB CONC 33 g/dl (33.0-37.0); MEAN PLATELET VOLUME 8.7 fl (7.4-10.4); MONO # 0.8 K/mm3 (0.1-0.6); MONO % 8.8 % (1.7-9.3); PLATELET COUNT 228 K/mm3 (130-400); RED BLOOD COUNT 2.77 M/mm3 (4.10-5.30); REDCELL DISTRIBUTION WIDTH-CV 15.3 % (11.5-14.5)
[2024-03-06 05:50] LABS: ALBUMIN 2.4 g/dL (3.5-5.0); BILIRUBIN,TOTAL 0.3 mg/dL (0.2-1.2); CALCIUM 9.6 mg/dL (8.4-10.2); CREATININE, serum 2.03 mg/dL (0.57-1.11); MAGNESIUM 1.7 mg/dL (1.6-2.6); POTASSIUM 4.1 mEq/L (3.5-4.5)
--- NOTE | 2024-03-06 08:10 | NUR ---
Patient awake and alert, however continues to have confusion . shift supervisor rn RN reported patient was awake for most of the night. Patient can follow simple commands and answer some questions appropriately. However patient is talking to herself and others who are not in the room. At times becomes emotional and cries about her "losing his job" and also about tornados and birds in her room. Patient can be re-directed at times and is overall pleasant and cooperative with staff. Will continue to monitor.
--- NOTE | 2024-03-06 08:24 | NUR ---
community service worker was notified patient's insurance declined for [facility]. MANISH provided doc to doc number to Dr. Shen. P# [phone] Dr Shen will be calling to appeal today.
--- NOTE | 2024-03-06 10:34 | NUR ---
Follow-up visit with Jahaira who says she's hungry. told her to let her nurse know. reiterated that she has Jahaira in her prayers for healing and just wanted to wish her a speedy recovery.
[2024-03-06] MEDS ORDERED: COREG 6.256.25 MG/TA PO (16:09)
--- NOTE | 2024-03-06 16:26 | NUR ---
BC[employer] determination was overturned, however the [facility] Team was unable to get auth number for patient. She was unable to be sent out today. SW prepped EMS forms and left them by patient's chart. MANISH updated RN and Data Warehousing Engineer. RN advised she would notify who is at bedside. Discharge Plan: [facility]
[2024-03-06] MEDS ORDERED: Carvedilol 6.25 MG TAB PO SCH (17:00)
--- NOTE | 2024-03-06 18:10 | NUR ---
Report called to CARLOS Licona. Reviewed POC and all questions answered. Pt transferred via bed to room 319. at bedside.
--- NOTE | 2024-03-06 18:17 | NUR ---
PATIENT ARRIVED FROM ICU AWAKE AND ALERT. PATIENT CONVESATION CONFUSED. CALL LIGHT WITHIN REACH, CONT PEG TUBE FEEDING INFUSING. SUBCLAVIAN CENTRAL LINE DRESSING CDI AND CHAGED TODAY BY ICU STAFF. PATIENT HINKLE PATENT. FALL PRECAUTIONS IN PLACE. PATIENTS AT BEDSIDE.
--- NOTE | 2024-03-06 21:13 | NUR ---
PATIENT HYPERTENSIVE-195 SYSTOLIC- 10MG IV APRESALINE GIVEN.
--- NOTE | 2024-03-07 | NUR ---
ENTERED PATIENT ROOM. PATIENT HOLDING FUAD TUBING. TUBING STILL REMAIN AT THE 82 AMBROCIO. REMINDED PATIENT NOT TO TOUCH TUBING AND REORIENTED PATIENT.
--- NOTE | 2024-03-07 02:48 | NUR ---
PATIENT HAVING HALLUCINATIONS OF PEOPLE OUTSIDE WINDOW, "HUMPING EACH OTHER." AND STATED, "THAT CONGRESSMAN MOLESTED THE LITTLE BOY". ALSO EXHIBITS PARANOIA STATING, "THEY ARE IN MY GARAGE STEALING MY STUFF." "THEY ARE ASKING ME TO WHIP OUT MY BOOB." PATIENT REORIENTED SEVERAL TIMES.
[2024-03-07 03:51] VITALS: BP 163/76; PULSE 77; TEMP 98.4
--- NOTE | 2024-03-07 04:00 | NUR ---
ENTERED PATIENT ROOM, PATIENT ATTEMPTING TO PULL DOBHOFF. HALLUCINATIONS INCREASING. ALTHOUGH PATIENT CAN BE REORIENTED, SHE QUICKLY BECOMES CONFUSED AND AGITATED AGAIN.
--- NOTE | 2024-03-07 04:53 | NUR ---
PATIENT REFUSES SCDs.
[2024-03-07 07:08] VITALS: BP 166/65; PULSE 79; TEMP 98.8
--- NOTE | 2024-03-07 07:15 | NUR ---
Patient allowed this nurse to burp colostomy bag, however, began to cry and stated, "Don't touch it, it will bleed." Patient began also to have inappropriate conversation and asked this nurse, "Would you suck on the doctor's weenie if he asked with salt and pepper on it ?" Educated patient on inappropriateness of sexual nature of her conversations. She stated, "I know but they made us suck rhino and elephant and eat poop too with yogurt. Take all these cats and dogs too, they are gross and eat doo-doo." Patient can no longer have brief moments of lucid conversations-now all conversations are r/t explicit sexual statements or feces related. Again, this nurse educated patient on appropriate conversations, she apologied and stated, "I am sorry. We're just so bored." Patient became silent.
--- NOTE | 2024-03-07 08:00 | NUR ---
[facility]AV[facility] CONVERSATION TO SOMEONE. PATIENT JUMPS FROM ONE THOUGHT TO THE NEXT WITHOUT ANY CONNECTION TO ANY OF THEM. PATIENT STATED (COME GIVE GRANDMA A KISS JEOVANNY, PLEASE," "NO I TOLD YOU ABOUT THE KITTENS," "WHAT DID YOU HEAR BULLST." PATIENT DOES NOT REORIENT. REORIENTATION ATTEMPS ONLY SEEM TO AGRAVATE PATIENT FURTHER.
--- NOTE | 2024-03-07 11:19 | NUR ---
MANISH called Tor[facility] at [facility] to check status of authorization. [facility] states that they have the denial overturned but have not received the actual authorization yet. As soon as they receive the authorization from [facility], patient will be transferred.
--- NOTE | 2024-03-07 11:24 | NUR ---
PATIENT BLOOD DRAWN FOR AM LAB IT WAS NOT COLLECTED AT 0500. BLOOD DRAWN AND TUBES FILLED/LABELED BY THIS RN/ LAB CONFIRMED RECIEVING THEM.
[2024-03-07 11:29] LABS: BASO % 0.1 % (0.0-2.0); EOS # 0.5 K/mm3 (0.0-0.7); EOS % 6.5 % (0.0-4.0); GRAN # 4.9 K/mm3 (1.4-6.5); GRAN % 65.4 % (42.2-75.2); LYMPH # 1.4 K/mm3 (1.2-3.4); LYMPH % 18.7 % (20.0-51.0); MEAN CELL VOLUME 92 fl (80.0-100.0); MEAN CORPUSCULAR HGB CONC 32 g/dl (33.0-37.0); MEAN PLATELET VOLUME 9.2 fl (7.4-10.4); MONO # 0.7 K/mm3 (0.1-0.6); MONO % 8.6 % (1.7-9.3); PLATELET COUNT 213 K/mm3 (130-400); RED BLOOD COUNT 2.36 M/mm3 (4.10-5.30); REDCELL DISTRIBUTION WIDTH-CV 15.4 % (11.5-14.5)
[2024-03-07 11:35] LABS: HEMATOCRIT 21.7 % (37.0-47.0); MEAN CORPUSCULAR HEMOGLOBIN 29 pg (27-31)
[2024-03-07 11:36] LABS: HEMOGLOBIN 6.9 g/dl (12.5-16.0)
--- NOTE | 2024-03-07 11:38 | NUR ---
CALL PLACED TO . VM LEFT FOR CALLBACK.
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
[2024-03-07 11:41] LABS: ALBUMIN 2.1 g/dL (3.5-5.0); BILIRUBIN,TOTAL 0.3 mg/dL (0.2-1.2); CALCIUM 8.7 mg/dL (8.4-10.2); CREATININE, serum 1.91 mg/dL (0.57-1.11); MAGNESIUM 1.6 mg/dL (1.6-2.6); TOTAL PROTEIN 5.3 g/dl (6.2-8.1)
[2024-03-07 12:05] LABS: POTASSIUM 4.5 mEq/L (3.5-4.5)
[2024-03-07] MEDS ORDERED: OLANZapine 2.5 MG,Water For Injection,Sterile 0.5 ML IM PRN (12:15)
[2024-03-07 12:19] VITALS: BP 147/59; PULSE 78; TEMP 98.1
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
[2024-03-07 12:48] LABS: HEMATOCRIT 23.1 % (37.0-47.0); HEMOGLOBIN 7.4 g/dl (12.5-16.0)
[2024-03-07 15:42] VITALS: BP 157/65; PULSE 137; TEMP 98.3
--- NOTE | 2024-03-07 15:42 | NUR ---
MANISH received call from Shevlin with [facility] stating patient can admit tomorrow. MANISH called [facility] to scheduled transport for tomorrow at [address]rd. Report # is [phone]. MANISH notified Dr. Shen, patient's and RN of scheduled transfer. All are in agreement. Discharge plan: [facility]
[2024-03-07] MEDS ORDERED: Cetirizine 10 MG TAB PO ONE (18:00)
[2024-03-07] MEDS ORDERED: Magnesium Sulfate 4% 50 ML IV ONE (18:30)
--- NOTE | 2024-03-07 18:43 | NUR ---
WIPES CONTAINING ALOE USED ON PATIENT, THIS IS LISTED AN ALLERGY. PATIENT BATHED, DRESSINGS CHANGED AND PO ZYRTEC WERE GIVEN.PATIENT STILL WITHOUT S/S OF ALLERGIC REACTION. SIGN TO NOT USE FACILITY WIPES PLACED ON DOOR. CALL LIGHT WITHIN REACH. FALL PRECAUTIOSN IN PLACE. CONT FEEDING INFUSING ORDERED. PATIENTS DAUGHTER AND AT BEDSIDE.
--- NOTE | 2024-03-07 19:03 | NUR ---
BEDSIDE SHIFT REPORT COMPLETE. PATIENT SITTING UP IN BED, TALKING WITH HER FATHER ONTHE PHONE, HER AT BEDSIDE. CONTINUOUS TUBE FEED INFUSING ORDERED. CALL LIGHT WTIHIN REACH, FALL PRECAUTIONS AND SEIZURE PRECAUTIOSN IN PLACE.
[2024-03-07 19:47] VITALS: BP 175/51; PULSE 79; TEMP 98.5
[2024-03-07] MEDS ORDERED: Melatonin 3 MG TAB PO SCH (21:00)
[2024-03-07] MEDS ORDERED: traZODone 50 MG TAB PO SCH (21:00)
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
[2024-03-07 23:35] VITALS: BP 151/68; PULSE 72; TEMP 97.9
[2024-03-08] VITALS (7 sets, daily range): BP systolic 101–152; BP diastolic 54–74; PULSE 66–75; TEMP 92.3–98.3
--- NOTE | 2024-03-08 00:50 | NUR ---
ENTERED PATIENT'S ROOM. AKIL FINALLY ASLEEP. RR 14. NO SIGNS OF DISTRESS.
--- NOTE | 2024-03-08 01:28 | NUR ---
JEVITY 1.5, 1L STERILE WATER AND [place] TUBING EXCHANGED, PRIMED AND ADMINISTER THROUGH ENFIT-DOBHOFF. PATIENT REMAINS ASLEEP.
[2024-03-08 05:31] LABS: BILIRUBIN,TOTAL 0.2 mg/dL (0.2-1.2); CALCIUM 8.4 mg/dL (8.4-10.2); CREATININE, serum 1.84 mg/dL (0.57-1.11); MAGNESIUM 1.9 mg/dL (1.6-2.6); POTASSIUM 4.5 mEq/L (3.5-4.5); TOTAL PROTEIN 5.1 g/dl (6.2-8.1)
--- NOTE | 2024-03-08 05:52 | NUR ---
CALL RECIEVED FROM MANAGER REAL ESTATE HANNAH. PATIENT HGB 6.2 CRITICAL VALUE, HOWEVER, NOTED THAT CBC AND H&H WERE DRAWN YESTERDAY; THE FIRST (CBC) RESULTING IN A CRITICAL 6.9 AND THE SECOND (H&H) RESULTING 7.4. NO ADDITIONAL UNITS OF PRBC WERE TRANSFUSED. HANNAH AGREED REPEAT LABS NEEDED TO CLARIFY. CALL PLACED TO HOSPITALIST AND TORB TO REPEAT LABS GIVEN AND TO AWAIT POSSIBLE ORDERS FOR TRANSFUSION.
[2024-03-08 06:08] LABS: BASO % 0.6 % (0.0-2.0); EOS # 0.5 K/mm3 (0.0-0.7); EOS % 6.4 % (0.0-4.0); GRAN # 4.5 K/mm3 (1.4-6.5); GRAN % 63.3 % (42.2-75.2); LYMPH # 1.6 K/mm3 (1.2-3.4); LYMPH % 22.2 % (20.0-51.0); MEAN CELL VOLUME 93 fl (80.0-100.0); MEAN CORPUSCULAR HGB CONC 31 g/dl (33.0-37.0); MEAN PLATELET VOLUME 9.2 fl (7.4-10.4); MONO # 0.5 K/mm3 (0.1-0.6); MONO % 6.9 % (1.7-9.3); PLATELET COUNT 195 K/mm3 (130-400); RED BLOOD COUNT 2.26 M/mm3 (4.10-5.30); REDCELL DISTRIBUTION WIDTH-CV 15.2 % (11.5-14.5)
[2024-03-08 06:33] LABS: HEMOGLOBIN 6.6 g/dl (12.5-16.0); MEAN CORPUSCULAR HEMOGLOBIN 29 pg (27-31)
--- NOTE | 2024-03-08 06:43 | NUR ---
CRITICAL VALUE FROM HANNAH-CALENDER MACHINE OPERATOR RECIEVED. Hgb 6.6. ATTEMPTED TO CALL HOSPITALIST, BUT SHIFT CHANGE IN PROGRESS-NO ANSWER. PASSED TO DAYSHIFT.
--- NOTE | 2024-03-08 08:00 | NUR ---
AWARE OF PATIDANIS PHAN
--- NOTE | 2024-03-08 08:34 | NUR ---
SW received call from [facility] to verify transport for today to [facility]. SW met with patient and in room, patient awake but confused. signed EMS transport forms agreeing to ambulance transport to [facility]. Transportation scheduled for 1200, RN notified,
--- NOTE | 2024-03-08 10:38 | NUR ---
MANISH faxed discharge orders and clinical updates to [facility]. Transport scheduled for 1200
--- NOTE | 2024-03-08 11:11 | NUR ---
MADE AWARE OF PATIENT CRITICAL LOW LABS
--- NOTE | 2024-03-08 11:11 | NUR ---
REPORT CALLED TO [facility]. ALL QUESTIONS ANSWERED. CALL BACK NUMBER GIVEN.
--- NOTE | 2024-03-08 11:45 | NUR ---
PATIENT BLOOD TRANSFUSION COMPLETE. NO S/S OF REACTION
--- NOTE | 2024-03-08 12:30 | NUR ---
PATIENT PICKED UP BY EMS. PATIENT LEFT AWAKE ALERT AND ORIENTED, CONTINUOUS TUBE FEED STOPPED FOR TRANSPORT.
== END 2024-03-08 13:33 | DRG 70 ==
LOC: COL.ER 21:13 → ICU 02-29 00:49 → MEDICAL 03-06 18:00
PROVIDERS: Emergency Medicine; Hospitalist; Internal Medicine Pulmonary Disease; Internal Medicine Sleep Medicine; Nurse Practitioner Family; ADMIT Internal Medicine
PROC: 0BH17EZ Insertion of Endotracheal Airway into Trachea, Via Natural or Artificial Opening (ICD-10-PCS; principal; 2024-02-29)
PROC: 5A1945Z Respiratory Ventilation, 24-96 Consecutive Hours (ICD-10-PCS; 2024-02-29)
PROC: 02HV33Z Insertion of Infusion Device into Superior Vena Cava, Percutaneous Approach (ICD-10-PCS; 2024-02-29)
DX: G93.40 Encephalopathy, unspecified (principal); A41.9 Sepsis, unspecified organism; L89.153 Pressure ulcer of sacral region, stage 3; J96.01 Acute respiratory failure with hypoxia; I50.33 Acute on chronic diastolic (congestive) heart failure; J18.9 Pneumonia, unspecified organism; T83.518A Infection and inflammatory reaction due to other urinary catheter, initial encounter; N39.0 Urinary tract infection, site not specified; E87.20 Acidosis, unspecified; J98.11 Atelectasis; I13.0 Hypertensive heart and chronic kidney disease with heart failure and stage 1 through stage 4 chronic kidney disease, or unspecified chronic kidney disease; N17.9 Acute kidney failure, unspecified; R44.3 Hallucinations, unspecified; G40.409 Other generalized epilepsy and epileptic syndromes, not intractable, without status epilepticus; I67.83 Posterior reversible encephalopathy syndrome; I50.9 Heart failure, unspecified; N18.30 Chronic kidney disease, stage 3 unspecified; I16.0 Hypertensive urgency; R13.10 Dysphagia, unspecified; D64.9 Anemia, unspecified; E11.9 Type 2 diabetes mellitus without complications; I08.1 Rheumatic disorders of both mitral and tricuspid valves; G40.909 Epilepsy, unspecified, not intractable, without status epilepticus; F32.A Depression, unspecified; R32 Unspecified urinary incontinence; E78.5 Hyperlipidemia, unspecified; E83.52 Hypercalcemia; R53.81 Other malaise; Z79.82 Long term (current) use of aspirin; Z90.49 Acquired absence of other specified parts of digestive tract; Z90.710 Acquired absence of both cervix and uterus; Z86.73 Personal history of transient ischemic attack (TIA), and cerebral infarction without residual deficits; Z87.891 Personal history of nicotine dependence; Z88.0 Allergy status to penicillin; Z88.2 Allergy status to sulfonamides
CPT/HCPCS: A9575; J0360; J0457; J1756; J1940; J1953; J2060; J2185; J2470; J2704; J3010; J3370; J3475; J3480; J7030; J7040; J7050; J7060; J7120; P9016; Q3014; Q9967